=== PATIENT | female | born 1950 | race Caucasian/White ===

== ENCOUNTER → 2016-12-01 | Outpatient (CLI) | payer MEDICARE, OTHER ==
[~2016-12-01] MED LIST: PRED20TA PO
[2016-12-01 16:35] VITALS: BP 128/78
--- NOTE | 2016-12-01 16:35 | Urgent Care T Sheet Gen (E) ---
Intake General Temperature (Fahrenheit): 98.6 Pulse: 68 Blood Pressure Systolic: 128 Blood Pressure Diastolic: 78 Respirations: 18 SPO2: 99 Description of Symptoms Patient presents with a flare up of her allergies since Wednesday. Takes several daily allergy meds however states they haven't been able to keep up. Patient lives in [place] and states her allergies are bad right now. Has been in [place] for a few days and they keep getting worse. Her allergies mostly cause drainage and cause respiratory issues. No fever. Not much nasal congestion. Takes Singulair daily and uses Flovent and Albuterol inhaler for her allergies. History of Present Illness Allergies: Coded Allergies: Hydrocodone (Verified Allergy, 12/01/16) Additional Comment Home meds include: Singulair Progesterone Estradiol Flovent Albuterol inhaler Respiratory Constitutional Symptoms: No syptoms reported EENTM: No symptoms reported Respiratory: Cough (chest feels heavy)No Short of breath, No Wheezing Cardiovascular: No symptoms reported All Other Systems Reviewed Remaining Systems: All other systems reviewed with negative findings Physical Exam Physical Exam General Appearance: WD/WN No apparent distress Eyes, Ears, Nose, Throat Ex: TMs normal Pharyngeal erythema (cobblestone appearance, clear PND) Other (pale nasal turbinates) Neck Exam: SuppleNo Lymphadenopathy Respiratory Exam: Lungs clear Normal breath soundsNo Rhonchi, No Wheezes Cardiovascular Exam: Regular rate, rhythm Departure Urgent Care Impression Impression: Primary Impression: Seasonal allergies Qualified Code: J30.1 - Allergic rhinitis due to pollen Departure Disposition: 01 HOME OR SELF-CARE Condition: Stable Additional Instructions: Reassured patient that her lungs sound clear so I don't believe she has an infection, which is what she was concerned about. I started her on a tapering dose of Prednisone. Continue daily meds as prescribed Return as needed Patient understands DC instructions. All questions were answered. Scripts Prednisone 20 Mg [id number] Mg PO DAILY #10 TAB 40mg po daily x 3 days then 20mg po daily x 4 days Prov:YADIEL HURD 12/01/16 End of report . YADIEL HURD December 01, 2016 16:35
== END ==
LOC: MHUC 16:08
PROVIDERS: ATTEND Physician Assistant
DX: J30.1 Allergic rhinitis due to pollen (principal)
CPT/HCPCS: 99213